=== PATIENT | male | born 1970 | race Caucasian/White ===

== ENCOUNTER 2017-11-06 18:40 | Emergency (ER) | payer OTHER ==
[2017-11-06] MEDS ORDERED: Ketorolac Tromethamine 30 MG/ML VIAL ONE (19:23)
--- NOTE | 2017-11-06 21:00 | RAD ---
LEFT SHOULDER THREE VIEW 11/06/17 HISTORY: Pain. COMPARISON: Radiographs 2008. FINDINGS: No acute fracture or malalignment. Mild increased peripheral interstitial markings in the lung bases. Moderate degenerative disease acromioclavicular joint. Visualized ribs are unremarkable. IMPRESSION: No acute abnormality. POS: TAYA
== END 2017-11-06 19:51 | disposition home or self-care (01) ==
LOC: ERS 18:40
DX: M25.512 Pain in left shoulder (principal); I10 Essential (primary) hypertension; F41.9 Anxiety disorder, unspecified; F32.9 Major depressive disorder, single episode, unspecified; F17.210 Nicotine dependence, cigarettes, uncomplicated; Z79.899 Other long term (current) drug therapy; X50.1XXA Overexertion from prolonged static or awkward postures, initial encounter
CPT/HCPCS: 96372; J1885

== ENCOUNTER 2019-01-11 05:56 | Emergency (ER) | payer OTHER ==
[2019-01-11] MEDS ORDERED: hydrOXYzine 25 MG TAB ONE (06:14)
== END 2019-01-11 06:20 | disposition home or self-care (01) ==
LOC: ERS 05:56
DX: F41.9 Anxiety disorder, unspecified (principal); I10 Essential (primary) hypertension; N40.0 Benign prostatic hyperplasia without lower urinary tract symptoms; F32.9 Major depressive disorder, single episode, unspecified; F17.210 Nicotine dependence, cigarettes, uncomplicated
CPT/HCPCS: 99283

== ENCOUNTER 2019-12-16 16:13 | Emergency (ER) | payer SELFPAY | END 2019-12-16 17:27 | disposition home or self-care (01) | LOC: ERS 16:13 | DX: M25.512 Pain in left shoulder (principal) | CPT/HCPCS: 99283 ==

== ENCOUNTER 2019-12-31 13:20 | Emergency (ER) | payer SELFPAY ==
[2019-12-31] MEDS ORDERED: hydrOXYzine 25 MG TAB ONE (13:58)
--- NOTE | 2020-01-03 11:04 | EKG ---
Test Reason : ANXIETY Blood Pressure : / mmHG Vent. Rate : 050 BPM Atrial Rate : 050 BPM P-R Int : 160 ms QRS Dur : 102 ms QT Int : 470 ms P-R-T Axes : 062 040 050 degrees QTc Int : 428 ms Sinus bradycardia Voltage criteria for left ventricular hypertrophy Abnormal ECG Confirmed by REINA ROSALES DO ([id number]), editor trade journal [employer]AM REEVES ([id number]) on 01/03/2020 11:03:33 AM Referred By: Confirmed By:REINA ROSALES DO
== END 2019-12-31 14:40 | disposition home or self-care (01) ==
LOC: ERS 13:20
DX: F41.9 Anxiety disorder, unspecified (principal); E78.5 Hyperlipidemia, unspecified; E78.00 Pure hypercholesterolemia, unspecified; I10 Essential (primary) hypertension; F32.9 Major depressive disorder, single episode, unspecified; Z79.899 Other long term (current) drug therapy
CPT/HCPCS: 93005

== ENCOUNTER 2021-05-14 14:14 | Emergency (ER) | payer OTHER | END 2021-05-14 15:18 | disposition home or self-care (01) | LOC: ERS 14:14 | DX: M54.50 Low back pain, unspecified (principal); I10 Essential (primary) hypertension; E78.5 Hyperlipidemia, unspecified; E11.9 Type 2 diabetes mellitus without complications; E78.00 Pure hypercholesterolemia, unspecified; F17.210 Nicotine dependence, cigarettes, uncomplicated; Z79.899 Other long term (current) drug therapy | CPT/HCPCS: 96372; 99283 ==

== ENCOUNTER 2022-12-05 09:30 | Emergency (ER) | payer OTHER ==
[2022-12-05 10:15] LABS: #Basophils 0.1 thou/uL (0.0-0.2); #Eosinphils 0.6 thou/uL (0.0-0.7); #Neutrophils 5.4 thou/uL (1.40-6.50); %Basophils 0.4 % (0.0-1.0); %Eosinophils 4.8 % (0.0-10.0); %Monocytes 8.9 % (0.0-10.0); %Neutrophils 47.6 % (42.0-75.0); Hematocrit 38.6 % (42.0-52.0); Hemoglobin 13.1 g/dL (14.0-18.0); Mean Corpuscular HGB CONC 33.9 g/dL (32.0-36.0); Mean Corpuscular Hemoglobin 34.4 pg (27.0-31.0); Mean Corpuscular Volume 101.3 fl (78.0-98.0); Mean Platelet Volume 8.9 fL (7.4-10.4); Platelet Count 225 10x3/uL (130-400); RBC Distribution Width 13.2 % (11.5-14.5); Red Blood Cell (RBC) Count 3.81 mill/uL (4.70-6.10); White Blood Cell (WBC) Count 11.4 10x3/uL (4.8-10.8)
[2022-12-05] MEDS ORDERED: Ketorolac Tromethamine 30 MG/ML VIAL ONE (10:19)
[2022-12-05 10:35] LABS: ALT (SGPT) 39 U/L (8-55); AST (SGOT) 31 U/L (5-34); Albumin 4.1 g/dL (3.5-5.0); Alkaline Phosphatase 91 U/L (40-110); Anion Gap 12 mmol/L (10-20); BUN (Urea Nitrogen) 12 mg/dL (8.4-25.7); Bilirubin, Total 0.2 mg/dL (0.2-1.2); Calc. Creatinine Clearance 0 mL/min (70-130); Calcium 9.2 mg/dL (7.8-10.44); Carbon Dioxide 23 mmol/L (22-29); Chloride 106 mmol/L (98-107); Estimated GFR 74; Globulin 3.3 g/dL (2.4-3.5); Glucose 132 mg/dL (70-105); Lipase 61 U/L (8-78); Potassium 3.8 mmol/L (3.5-5.1); Protein, Total 7.4 g/dL (6.0-8.3); Sodium 137 mmol/L (136-145)
[2022-12-05 10:39] LABS: Troponin I Less than 0.010 ng/mL (< 0.028)
[2022-12-05 13:01] LABS: Troponin I Less than 0.010 ng/mL (< 0.028)
== END 2022-12-05 13:33 | disposition home or self-care (01) ==
LOC: ERS 09:30
DX: S16.1XXA Strain of muscle, fascia and tendon at neck level, initial encounter (principal); R07.9 Chest pain, unspecified; D64.9 Anemia, unspecified; E78.00 Pure hypercholesterolemia, unspecified; I10 Essential (primary) hypertension; F17.210 Nicotine dependence, cigarettes, uncomplicated; Z79.899 Other long term (current) drug therapy; X50.3XXA Overexertion from repetitive movements, initial encounter
CPT/HCPCS: 36415; 71045; 80053; 83690; 84484; 85025; 93005; 96374; J1885

== ENCOUNTER 2023-05-11 02:13 | Emergency (ER) | payer OTHER ==
[2023-05-11] MEDS ORDERED: Ketorolac Tromethamine 30 MG (1 mL) VIAL ONE (04:16)
== END 2023-05-11 04:41 | disposition home or self-care (01) ==
LOC: ERS 02:13
DX: M25.512 Pain in left shoulder (principal); I10 Essential (primary) hypertension; F17.200 Nicotine dependence, unspecified, uncomplicated; Z55.6 Problems related to health literacy
CPT/HCPCS: 93005; 96372; J1885